=== PATIENT | male | born 1960 | race Caucasian/White ===

== ENCOUNTER 2020-12-01 13:07 | Inpatient (IN) | payer MEDICARE, OTHER ==
[~2020-12-01] VITALS: Ht 177.8 cm; Wt 83.1 kg
[~2020-12-01 13:07] MED LIST: AUGMENTIN 500-500 MG PO; CLARITIN10 MG PO; DILANTIN CHEWAB50 MG PO; DILANTIN100 MG PO; ECOTRIN81 MG PO; IMDUR ER TAB 6060 MG PO; INCRUSE ELLI62.5 MCG INH; IPRAT-ALBUT 0.5-3 ML INH; IRON325 M1 PO; LOPRESSOR 25 MG25 MG PO; MEDROL DOSEPAK 24 MG PO; RANEXA500 MG PO; SINGULAIR10 MG PO; SYMBICORT 160-1 INHA INH; SYNTHROID150 MCG PO; VIMPAT200 MG PO; VITAMIN D31000 UNI1 PO
[2020-12-01 14:13] LABS: HEMOGLOBIN 12.3 gm/dl (14.0-17.5); RED BLOOD COUNT 3.58 M/UL (4.20-5.50); WHITE BLOOD COUNT 14.7 K/UL (4.5-11.0)
[2020-12-01 14:57] LABS: BUN/CREATININE RATIO 9 (0-10)
[2020-12-01] MEDS ORDERED: PROAIR HFA8.5 GM INH (16:37)
[2020-12-01] MEDS ORDERED: APTIOM800 MG PO (22:14)
[2020-12-01] MEDS ORDERED: FOSINOPRIL SODI20 MG PO (22:21)
[2020-12-01] MEDS ORDERED: LIPITOR80 MG PO (22:22)
[2020-12-02 06:46] LABS: RED BLOOD COUNT 3.29 M/UL (4.20-5.50)
[2020-12-02 06:47] LABS: WHITE BLOOD COUNT 9.6 K/UL (4.5-11.0)
[2020-12-02 07:28] LABS: BUN/CREATININE RATIO 6 (0-10)
[2020-12-03 07:09] LABS: BUN/CREATININE RATIO 4 (0-10)
[2020-12-03 09:16] LABS: HBSAG SCREEN Negative (Negative); HEP A AB, IGM Negative (Negative); HEP B CORE AB, IGM Negative (Negative); HEP C VIRUS AB <0.1 (0.0-0.9)
[2020-12-04 10:48] LABS: BUN/CREATININE RATIO 5 (0-10)
== END 2020-12-04 13:30 | disposition home health service (06) | DRG 557 ==
LOC: ER1 13:07 → MED SURG 4 15:40 → CDU 15:40 → MED SURG 4 19:31
PROVIDERS: Internal Medicine; ADMIT Internal Medicine
DX: M62.82 Rhabdomyolysis (principal); G93.41 Metabolic encephalopathy; Z20.822 Contact with and (suspected) exposure to COVID-19; E87.6 Hypokalemia; G40.909 Epilepsy, unspecified, not intractable, without status epilepticus; E03.9 Hypothyroidism, unspecified; J44.9 Chronic obstructive pulmonary disease, unspecified; Z89.412 Acquired absence of left great toe; Z79.82 Long term (current) use of aspirin; Z90.49 Acquired absence of other specified parts of digestive tract; Z82.49 Family history of ischemic heart disease and other diseases of the circulatory system; Z80.3 Family history of malignant neoplasm of breast; Z80.42 Family history of malignant neoplasm of prostate; F17.210 Nicotine dependence, cigarettes, uncomplicated
CPT/HCPCS: 36415; 36600; 70450; 71045; 73620; 80048; 80053; 80074; 80185; 80307; 81001; 82009; 82140; 82550; 82553; 82803; 83036; 83605; 83690; 83874; 83880; 84439; 84443; 84484; 85025; 85610; 85652; 85730; 86140; 87040; 87086; 93005; 93970; 94640; 94664; 94760; 96374; 96375; 97116-GP-CQ; 97162; 97530; 99285; G0480; J0696; J1650; J2405; J3370; J7030; U0002

== ENCOUNTER → 2020-12-15 | Outpatient (CLI) | payer MEDICARE, OTHER ==
[~2020-12-15] MED LIST changes: +APTIOM800 MG PO; +FOSINOPRIL SODI20 MG PO; +LIPITOR80 MG PO; +OXYBUTYNIN CHLOR5 MG PO; +PROAIR HFA8.5 GM INH
== END ==
LOC: LAB 14:03
PROVIDERS: Family Medicine
DX: N17.9 Acute kidney failure, unspecified (principal)
CPT/HCPCS: 36415; 80048

== ENCOUNTER 2020-12-19 12:55 | Inpatient (IN) | payer MEDICARE, OTHER ==
[~2020-12-19] VITALS: Ht 177.8 cm; Wt 108.4 kg
[~2020-12-19 12:55] MED LIST changes: -OXYBUTYNIN CHLOR5 MG PO
[2020-12-19 14:00] LABS: HEMOGLOBIN 11.9 gm/dl (14.0-17.5); RED BLOOD COUNT 3.53 M/UL (4.20-5.50); WHITE BLOOD COUNT 8.1 K/UL (4.5-11.0)
[2020-12-19] MEDS ORDERED: OXYBUTYNIN CHLOR5 MG PO (15:27)
[2020-12-20 08:05] LABS: HEMOGLOBIN 11.3 gm/dl (14.0-17.5); RED BLOOD COUNT 3.45 M/UL (4.20-5.50); WHITE BLOOD COUNT 6.9 K/UL (4.5-11.0)
[2020-12-20] MEDS ORDERED: LEVOFLOXACIN500 MG PO (18:18)
[2020-12-21 06:41] LABS: HEMOGLOBIN 10.6 gm/dl (14.0-17.5); RED BLOOD COUNT 3.21 M/UL (4.20-5.50); WHITE BLOOD COUNT 6.5 K/UL (4.5-11.0)
[2020-12-21 07:09] LABS: BUN/CREATININE RATIO 7 (0-10)
== END 2020-12-21 12:54 | disposition home health service (06) | DRG 683 ==
LOC: ER1 12:55 → CDU 14:52 → MED SURG 4 14:52 → CDU 14:52 → MED SURG 4 15:24
PROVIDERS: Physician Assistant; Physician Assistant Medical; ADMIT Internal Medicine
DX: N17.9 Acute kidney failure, unspecified (principal); J44.1 Chronic obstructive pulmonary disease with (acute) exacerbation; Z20.822 Contact with and (suspected) exposure to COVID-19; I10 Essential (primary) hypertension; N13.30 Unspecified hydronephrosis; N40.0 Benign prostatic hyperplasia without lower urinary tract symptoms; F17.210 Nicotine dependence, cigarettes, uncomplicated; G47.00 Insomnia, unspecified; K59.00 Constipation, unspecified; G40.909 Epilepsy, unspecified, not intractable, without status epilepticus; E03.9 Hypothyroidism, unspecified; I25.10 Atherosclerotic heart disease of native coronary artery without angina pectoris; E78.5 Hyperlipidemia, unspecified; Z89.422 Acquired absence of other left toe(s); Z90.49 Acquired absence of other specified parts of digestive tract; Z95.5 Presence of coronary angioplasty implant and graft; Z96.82 Presence of neurostimulator; Z82.49 Family history of ischemic heart disease and other diseases of the circulatory system; Z80.3 Family history of malignant neoplasm of breast; Z80.42 Family history of malignant neoplasm of prostate
CPT/HCPCS: 36415; 51702; 71045; 80053; 80185; 81001; 82436; 82550; 82553; 82570; 83735; 83874; 83880; 84133; 84156; 84300; 84484; 85025; 85027; 93005; 93971; 94640; 94664; 94760; 99285; J1650; J7030; U0002